=== PATIENT | male | born 1990 | race American Indian/Alaskan Native ===

== ENCOUNTER 2019-09-19 07:04 | Emergency (ER) | payer SELFPAY ==
[2019-09-19 07:45] VITALS: BP 146/75
[2019-09-19] MEDS ORDERED: KETOROLAC 60 MG/2 ML INJ IM ONE (08:17)
--- NOTE | 2019-09-19 08:22 | Emergency Department Report ---
ED Back Pain/Injury HPI - General Chief Complaint: Back Pain/Injury Stated Complaint: LOWER BACK PAIN Time Seen by Provider: 09/19/19 07:40 Source: patient Mode of arrival: Ambulatory Limitations: No Limitations - History of Present Illness Initial Comments: This is a 29-year-old -[place] male who presents to the emergency room with low back pain since yesterday. Patient states he was moving furniture in his home on yesterday preparing for his babies arrival when he felt a pop or pull the lower back with lifting. Denies radiating pain, bruising, numbness or tingling, change in urinary or bowel pattern, or weakness. MD Complaint: back pain Onset/Timin -: days(s) Similar Symptoms Previously: No Place: home Radiation: none Severity: severe Severity scale (0 -10): 9 Quality: stabbing, aching Consistency: intermittent Improves With: none Worsens With: none Context: while lifting Associated Symptoms: denies: numbness, difficulty urinating, incontinence, fever/chills - Related Data Previous Rx's Medication Instructions Recorded Last Taken Type Methocarbamol [Robaxin] 500 mg PO BID PRN #20 tablet 09/19/19 Unknown Rx Naproxen [Naprosyn] 500 mg PO BID PRN #20 tablet 09/19/19 Unknown Rx traMADoL [Ultram 50 MG tab] 50 mg PO Q6HR PRN #12 tablet 09/19/19 Unknown Rx Allergies Allergy/AdvReac Type Severity Reaction Status Date / Time No Known Allergies Allergy Unverified 09/19/19 07:25 ED Review of Systems ROS: Stated complaint: LOWER BACK PAIN Other details as noted in HPI Constitutional: denies: chills, fever Respiratory: denies: cough, shortness of breath, wheezing Cardiovascular: denies: chest pain, palpitations Gastrointestinal: denies: abdominal pain, nausea, diarrhea Genitourinary: denies: urgency, dysuria Musculoskeletal: back pain. denies: joint swelling, arthralgia Skin: denies: rash, lesions Neurological: denies: headache, weakness, paresthesias Psychiatric: as per HPI Hematological/Lymphatic: denies: easy bleeding, easy bruising ED Back Pain Physical Exam - Exam General: Vital signs noted. No distress. Alert and acting appropriately. Back/Abdomen: Yes Sacroiliac Tenderness (Bilaterally), No Abdominal Tenderness, No Perithoracic Tenderness, No Perilumbar Tenderness, No Flank Tenderness, No Straight Leg Raise Pain Neuro: Yes Normal Sensation, Yes Normal DTR's, Yes Normal Gait, No Motor Weakness ED Course Vital Signs 09/19/19 07:28 Temperature 99.2 F Pulse Rate 116 H Respiratory 18 Rate Blood Pressure 146/75 O2 Sat by Pulse 97 Oximetry ED Medical Decision Making - Medical Decision Making 29-year-old male complaining of low back pain for 1 day. Patient is nontoxic appearing and stable. Vitals are normal. No significant past medical history. No abdominal or midline tenderness on exam for signs of trauma. Steady gait. Given history and exam there is low suspicion for spinal fracture or other acute spinal syndrome. Given analgesics. Patient instructed of symptoms being a self-limiting. Start analgesics and muscle relaxants. They have been given strict return precautions. Patient discharged with prompt follow-up with primary care physician. Critical care attestation.: If time is entered above; I have spent that time in minutes in the direct care of this critically ill patient, excluding procedure time. ED Disposition Clinical Impression: Strain of muscle, fascia and tendon of lower back, initial encounter Lumbago without sciatica Qualifiers: Chronicity: acute Back pain laterality: bilateral Qualified Code(s): M54.5 - Low back pain Disposition: TO HOME OR SELFCARE Is pt being admited?: No Condition: Stable Instructions: Low Back Strain (ED), Arthralgia (ED) Additional Instructions: Rest Use ice or heat on affected area for 20 minutes and off for 2 hours. Take pain medication every 6-8 hours as needed for pain. Don't drive or operate heavy machinery while taking muscle relaxers because they may cause drowsiness. Follow up with Primary Care Provider in 2-3 days. Prescriptions: Naproxen [Naprosyn] 500 mg PO BID PRN #20 tablet PRN Reason: Pain, Moderate (4-6) Methocarbamol [Robaxin] 500 mg PO BID PRN #20 tablet PRN Reason: Muscle Spasm traMADoL [Ultram 50 MG tab] 50 mg PO Q6HR PRN #12 tablet PRN Reason: Pain Referrals: LACIE BLACKBURN MD [Staff Physician] - 3-[address] [facility] [Provider Group] - 3-5 Days [facility] [Provider Group] - 3-5 Days Forms: Work/School Release Form(ED) Time of Disposition: 08:25
== END 2019-09-19 08:37 | disposition home or self-care (01) ==
LOC: ED 07:04
DX: S39.012A Strain of muscle, fascia and tendon of lower back, initial encounter (principal); Z79.899 Other long term (current) drug therapy; X58.XXXA Exposure to other specified factors, initial encounter; Y93.89 Activity, other specified; Y92.239 Unspecified place in hospital as the place of occurrence of the external cause; Y99.8 Other external cause status
CPT/HCPCS: 96372; 99282; J1885